=== PATIENT | male | born 1970 | race Two or more races ===

== ENCOUNTER 2019-09-15 08:19 | Inpatient (IN) | payer OTHER ==
[~2019-09-15] VITALS: Ht 175.3 cm; Wt 92.5 kg
--- NOTE | 2019-09-15 08:40 | NUR ---
STRAIGHT BACK TO 41. SPO2 30% RA W GOOD WAVE FORM IN TRIAGE, HR 135. RR 50
--- NOTE | 2019-09-15 08:41 | NUR ---
PT STRAIGHT BACKED TO ROOM 41 W/ GOOD WAVEFORM SATING IN THE 30'S RA. PT PLACED ON MONITORS. NOTED TO BE 66% RA W/ GOOD WAVEFORM. PLACED ON NONREBREATHER NOW SATING 93-95%. PT HR 120'S. RR 49-59 NOTED. PT SPEAKING IN 4-5 WORD SENTENCES. PT DIAPHORETIC. PT DENIES ANY LUNG HX. HX OK. DENIES COUGH. +SOB/FEVER/CHILLS. STATES SX STARTED "ON THURSDAY. 2 DAYS AGO". UNKNOWN ACCURACY. AOX4. ERP DR. ZAMORANO AT BEDSIDE.
--- NOTE | 2019-09-15 08:50 | NUR ---
TASK RN: PIV ESTABLISHED. PT TOLERATED WITH NO COMPLICATIONS
[2019-09-15] MEDS ORDERED: SODIUM CHLORIDE 0.9% 1,000ML IVBOLUS ONE ×2 (09:00→10:30)
[2019-09-15] MEDS ORDERED: ENAL20TA9 PO (09:17)
[2019-09-15] MEDS ORDERED: CLON0.5T PO (09:17)
[2019-09-15] MEDS ORDERED: ASPI-515 PO (09:17)
--- NOTE | 2019-09-15 09:19 | NUR ---
SECOND PIV INITIATED W/O ISSUES. PT NOW HAS 2 PATENT PIV'S FOR USE IVF INITIATED. PT RESTING ON GURNEY. REMAINS ON NON-REBREATHER SATING 93%. HR 118-122. RR 44-46. PT SPEAKING IN 8-10 WORD SENTENCES. AWARE OF POC FOR ADMIT. PT STATES "I HAVE A ROOM AT HOME" PT EDUCATED ON NEED FOR ADMISSION. PT VERBALIZES UNDERSTANDING.
[2019-09-15] MEDS ORDERED: DEXAMETHASONE 4 MG/ML, 1ML IVPush STA (09:30)
[2019-09-15 09:31] LABS: BASOPHILS # (AUTO) 0.02 x10^3/uL (0-0.1); BASOPHILS % (AUTO) 0 % (0-1); EOSINOPHILS # (AUTO) 0.01 x10^3/uL (0-0.4); EOSINOPHILS % (AUTO) 0 % (1-7); LYMPHOCYTES # (AUTO) 0.52 x10^3/uL (1-3.4); LYMPHOCYTES % (AUTO) 5 % (22-44); MD NO; MEAN CORPUSCULAR HEMOGLOBIN 28.9 pg (27.5-34.5); MEAN CORPUSCULAR HGB CONC 33.3 g/dL (33.2-36.2); MEAN PLATELET VOLUME 9.4 fL (7.4-10.4); MONOCYTES # (AUTO) 0.56 x10^3/uL (0.2-0.8); MONOCYTES % (AUTO) 5 % (2-9); NEUTROPHILS % (AUTO) 90 % (42-75); PLATELET COUNT 161 x10^3/uL (130-400); RED BLOOD COUNT 4.38 x10^6/uL (4.38-5.82); RED CELL DISTRIBUTION WIDTH 14.6 % (9.4-14.8)
[2019-09-15 09:43] LABS: ALANINE AMINOTRANSFERASE 14 U/L (12-78); ALBUMIN 2.6 g/dL (3.4-5.0); ANION GAP 9 mmol/L (5-15); CALCIUM 8.2 mg/dL (8.5-10.1); CHLORIDE 112 mmol/L (98-107); CREATININE 1.59 mg/dL (0.7-1.3)
--- NOTE | 2019-09-15 09:43 | NUR ---
MARCUS () OKAY TO GIVE UPDATES [phone]
[2019-09-15 09:50] LABS: ALKALINE PHOSPHATASE 95 U/L (45-117); BILIRUBIN,TOTAL 0.7 mg/dL (0.2-1.0)
--- NOTE | 2019-09-15 10:19 | NUR ---
LESLIE, RT NOTIFIED OF NEED TO TEST PT ON OPTIFLOW.
[2019-09-15] MEDS ORDERED: DEXAMETHASONE 4 MG/ML, 1ML ONE (10:21)
[2019-09-15] MEDS ORDERED: CEFTRIAXONE PMX 1GM/50ML 50 ML ONE (10:21)
[2019-09-15] MEDS ORDERED: CEFTRIAXONE PMX 1GM/50ML 50 ML IV ONE (10:30)
[2019-09-15] MEDS ORDERED: AZITHROMYCIN 500 MG in SODIUM CHLORIDE 0.9% 250 ML IV ONE (10:30)
--- NOTE | 2019-09-15 10:45 | NUR ---
LESLIE, AT BEDSIDE PLACING PT ON BIPAP
--- NOTE | 2019-09-15 10:47 | NUR ---
PT STATES IMPROVEMENT OF BREATHING AFTER BEING PLACED ON BIPAP. NADN.
--- NOTE | 2019-09-15 10:56 | NUR ---
REPORT GIVEN TO LORETA RAMIREZ.
--- NOTE | 2019-09-15 11:00 | NUR ---
REPORT RECEIVED FROM LORETA KIRKLAND. ASSUMED CARE OF PT. PT CURRENTLY RESTING ON GURNEY. PT AO X 4. SKIN WARM AND DRY. PT CURRENTLY ON BI-PAP. PT VERBALIZES UNDERSTANDING OF POC. PT ON CONT BP, CARDIAC AND SPO2 MONITORS. CALL LIGHT WTIHIN REACH. WILL CONT T MONITOR PT.
[2019-09-15] MEDS: CEFTRIAXONE PMX 1GM/50ML 50 ML IV SCH (12:17)
[2019-09-15] MEDS: AZITHROMYCIN 500 MG in SODIUM CHLORIDE 0.9% 250 ML IV SCH (12:17)
[2019-09-15] MEDS ORDERED: ACETAMINOPHEN 325 MG TABLET PO PRN (12:30)
[2019-09-15] MEDS ORDERED: LABETALOL 5MG/ML, 20ML IVPush PRN (12:30)
[2019-09-15] MEDS ORDERED: ENALAPRILAT 1.25 MG/ML, 2ML IVPush PRN (12:30)
[2019-09-15] MEDS ORDERED: POLYETHYLENE GLYCOL 17 GM PACKET PO PRN (12:30)
[2019-09-15] MEDS ORDERED: BISACODYL 10 MG SUPP PR PRN (12:30)
[2019-09-15] MEDS ORDERED: LORazepam 2 MG/ML, 1ML IVPush PRN (12:30)
[2019-09-15] MEDS ORDERED: ONDANSETRON 2MG/ML, 2ML IVPush PRN (12:30)
--- NOTE | 2019-09-15 12:40 | NUR ---
RT LESLIE AT BEDSIDE TO TRANSITION PT FROM BI-PAP TO OPTIFLOW. PT CONT ASKING "CAN I GO HOME NOW?". PT RE-EDUCATED ON POC. PT AO X 4. SKIN WARM AND DRY. RESP EVEN AND UNLABORED. PT ON CONT BP, CARDIAC AND SPO2 MONITORS. REPORT TO LORETA SANTILLAN IN ICU.
[2019-09-15] MEDS ORDERED: REMDESIVIR 200 MG in SODIUM CHLORIDE 0.9% 250 ML IVPB ONE (13:00)
--- NOTE | 2019-09-15 13:29 | NUR ---
BREAK RN: PT. WAS TRANSPORTED TO ICU-5. PT. WAS LEFT IN THE CARE OF CHOCO. SNEHA.
[2019-09-15 13:45] VITALS: BP 126/85
[2019-09-15] MEDS ORDERED: FUROSEMIDE 40 MG/4 ML IV ONE (14:00)
[2019-09-15] MEDS: ENOXAPARIN 100 MG/ML SQ SCH (15:20)
[2019-09-15] MEDS: ASCORBIC ACID 500 MG TABLET PO SCH ×2 (17:19→21:15)
[2019-09-15] MEDS: FUROSEMIDE 40 MG/4 ML IV SCH (17:19)
[2019-09-15] MEDS: FAMOTIDINE 20 MG/2 ML IVPush SCH (21:15)
[2019-09-16 04:10] VITALS: BP 137/87
[2019-09-16 05:10] LABS: BASOPHILS # (AUTO) 0.01 x10^3/uL (0-0.1); BASOPHILS % (AUTO) 0 % (0-1); EOSINOPHILS % (AUTO) 0 % (1-7); LYMPHOCYTES # (AUTO) 0.98 x10^3/uL (1-3.4); LYMPHOCYTES % (AUTO) 10 % (22-44); MD NO; MEAN CORPUSCULAR HEMOGLOBIN 28.6 pg (27.5-34.5); MEAN CORPUSCULAR HGB CONC 32.9 g/dL (33.2-36.2); MEAN PLATELET VOLUME 9.3 fL (7.4-10.4); MONOCYTES # (AUTO) 0.49 x10^3/uL (0.2-0.8); MONOCYTES % (AUTO) 5 % (2-9); NEUTROPHILS # (AUTO) 8.63 x10^3/uL (1.8-6.8); NEUTROPHILS % (AUTO) 85 % (42-75); PLATELET COUNT 164 x10^3/uL (130-400); RED BLOOD COUNT 3.97 x10^6/uL (4.38-5.82)
[2019-09-16 05:22] LABS: CHLORIDE 109 mmol/L (98-107)
[2019-09-16 05:30] LABS: ALANINE AMINOTRANSFERASE 15 U/L (12-78); ALBUMIN 2.4 g/dL (3.4-5.0); ALKALINE PHOSPHATASE 84 U/L (45-117); ANION GAP 10 mmol/L (5-15); BILIRUBIN,TOTAL 0.5 mg/dL (0.2-1.0); CALCIUM 7.7 mg/dL (8.5-10.1); CREATININE 1.55 mg/dL (0.7-1.3)
[2019-09-16] MEDS ORDERED: DEXAMETHASONE 4 MG/ML, 1ML ONE (07:36)
[2019-09-16] MEDS: DEXAMETHASONE 4 MG/ML, 5ML IVPush SCH (08:09)
[2019-09-16] MEDS: FAMOTIDINE 20 MG/2 ML IVPush SCH ×2 (08:09→20:48)
[2019-09-16] MEDS: FUROSEMIDE 40 MG/4 ML IV SCH ×2 (08:09→16:33)
[2019-09-16] MEDS: CHOLECALCIFEROL 5,000u TAB PO SCH (08:10)
[2019-09-16] MEDS: ASCORBIC ACID 500 MG TABLET PO SCH ×3 (08:10→20:48)
[2019-09-16] MEDS: ENOXAPARIN 100 MG/ML SQ SCH ×2 (08:10→20:48)
[2019-09-16] MEDS: SENNA/DOCUSATE TABLET PO SCH (08:10)
[2019-09-16] MEDS: ZINC SULFATE 220 MG CAPSULE PO SCH (08:10)
[2019-09-16] MEDS: CEFTRIAXONE PMX 1GM/50ML 50 ML IV SCH (12:47)
[2019-09-16] MEDS: AZITHROMYCIN 500 MG in SODIUM CHLORIDE 0.9% 250 ML IV SCH (13:29)
[2019-09-16] MEDS ORDERED: REMDESIVIR 100 MG in SODIUM CHLORIDE 0.9% 250 ML IVPB SCH (14:30)
[2019-09-16 15:00] VITALS: BP 151/91
[2019-09-17 00:37] VITALS: BP 142/85
[2019-09-17 05:32] LABS: ANION GAP 8 mmol/L (5-15); CALCIUM 8.2 mg/dL (8.5-10.1); CHLORIDE 110 mmol/L (98-107); CREATININE 1.42 mg/dL (0.7-1.3)
[2019-09-17 07:26] VITALS: BP 141/89
[2019-09-17] MEDS ORDERED: DEXAMETHASONE 4 MG/ML, 1ML ONE (07:46)
[2019-09-17] MEDS ORDERED: ENOXAPARIN 30 MG/0.3 ML ONE (07:46)
[2019-09-17] MEDS: DEXAMETHASONE 4 MG/ML, 5ML IVPush SCH (09:00)
[2019-09-17 10:12] LABS: TROPONIN I 0.099 ng/mL (0.000-0.045)
[2019-09-17] MEDS: ZINC SULFATE 220 MG CAPSULE PO SCH (10:14)
[2019-09-17] MEDS: CHOLECALCIFEROL 5,000u TAB PO SCH (10:14)
[2019-09-17] MEDS: ASCORBIC ACID 500 MG TABLET PO SCH (10:14)
[2019-09-17] MEDS: FUROSEMIDE 40 MG/4 ML IV SCH (10:15)
[2019-09-17] MEDS: FAMOTIDINE 20 MG/2 ML IVPush SCH (10:15)
[2019-09-17] MEDS: SENNA/DOCUSATE TABLET PO SCH (10:15)
== END 2019-09-17 14:06 | disposition left against medical advice (07) | DRG 871 ==
LOC: ED 09:12 → EDIP 11:12 → ICU 13:13 → 3N 09-16 15:32
PROVIDERS: ADMIT Internal Medicine; ATTEND Internal Medicine
PROC: 5A09357 Assistance with Respiratory Ventilation, Less than 24 Consecutive Hours, Continuous Positive Airway Pressure (ICD-10-PCS; principal; 2019-09-15)
DX: A41.89 Other specified sepsis (principal); J12.9 Viral pneumonia, unspecified; J96.01 Acute respiratory failure with hypoxia; J81.0 Acute pulmonary edema; N17.0 Acute kidney failure with tubular necrosis; E43 Unspecified severe protein-calorie malnutrition; U07.1 COVID-19; I69.354 Hemiplegia and hemiparesis following cerebral infarction affecting left non-dominant side; J81.1 Chronic pulmonary edema; E78.5 Hyperlipidemia, unspecified; F17.200 Nicotine dependence, unspecified, uncomplicated; M79.10 Myalgia, unspecified site; R74.0 Nonspecific elevation of levels of transaminase and lactic acid dehydrogenase [LDH]; R79.82 Elevated C-reactive protein (CRP); Z20.828 Contact with and (suspected) exposure to other viral communicable diseases; I25.2 Old myocardial infarction; Z90.49 Acquired absence of other specified parts of digestive tract; Z79.82 Long term (current) use of aspirin; Z68.30 Body mass index [BMI] 30.0-30.9, adult; I11.0 Hypertensive heart disease with heart failure; I50.9 Heart failure, unspecified
CPT/HCPCS: 36415; 36600; 71045; 80048; 80053; 82728; 82803; 83605; 83615; 83880; 84145; 84484; 85025; 86140; 87040; 87081; 87260; 87275; 87276; 87279; 87280; 87299; 87635; 93005; 93306; 94660; 96361; 96365; 96375; 99291; G0378; J0456; J0696; J1100; J1650; J1940; J3490; J7030; J7050